=== PATIENT | male | born 1985 | race Caucasian/White ===

== ENCOUNTER 2022-09-11 18:16 | Emergency (ER) | payer OTHER ==
[2022-09-11 18:51] VITALS: BP 134/69; PULSE 101; RESP 18; TEMP 98.3; BMI 31.8
[2022-09-11] MEDS ORDERED: KETOROLAC TROMETHAMINE 30 MG/1 ML VIAL IM ONE (19:17)
[2022-09-11] MEDS ORDERED: LIDOCAINE 5% TOPICAL PATCH TP ONE (19:18)
[2022-09-11] MEDS ORDERED: KETOROLAC TROMETHAMINE 30 MG/1 ML VIAL ONE (19:30)
[2022-09-11] MEDS ORDERED: LIDOCAINE 5% TOPICAL PATCH ONE (19:30)
== END 2022-09-11 21:09 | disposition home or self-care (01) ==
LOC: JERFT 18:16 → JER 18:16 → JERFT 21:09
PROC: 3E0233Z Introduction of Anti-inflammatory into Muscle, Percutaneous Approach (ICD-10-PCS; principal; 2022-09-11)
DX: S39.012A Strain of muscle, fascia and tendon of lower back, initial encounter (principal); M54.50 Low back pain, unspecified; X50.0XXA Overexertion from strenuous movement or load, initial encounter
CPT/HCPCS: 99284-25